=== PATIENT | male | born 1995 | race Caucasian/White ===

== ENCOUNTER 2018-04-18 08:09 | Emergency (ER) | payer SELFPAY ==
[~2018-04-18] VITALS: Ht 188 cm; Wt 102.1 kg
[2018-04-18 08:13] VITALS: BP 151/75
--- NOTE | 2018-04-18 08:20 | NUR ---
PT AMBULATES TO BED 11
--- NOTE | 2018-04-18 08:21 | NUR ---
DR SCHROEDER EVALUATING AT BEDSIDE
[2018-04-18] MEDS ORDERED: ALBUTEROL SULFATE/IPRATROPIU 3 ML SOL IH ONE (08:25)
--- NOTE | 2018-04-18 08:29 | NUR ---
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 CARLIE WHEEZES AUSCULATATED, RESP EVEN AND UNLABORED, IN NAD. ON RA @97%.PT SPEKAING FULL CLEAR SENTENCES. DENIES CP. DENIES FEVERS, TAKING MUCINEX, LAST AT 0500 WITH NO REAL RELIEF. RT CALLED FOR TREATMENT.
--- NOTE | 2018-04-18 08:34 | NUR ---
ADMITTING DX: SOB HX: DENIES ASTHMA AWAKE AND ALERT HFW POSITION EDUCATION PROVIDED TO PATIENT WITH ACKNOWLEDGEMENT ON HHN THERAPY AND RESPIRATORY DRUG HHN THERAPY GIVEN ORDERED ENCOURAGED FOR INTERMITTENT DEEP BREATH AND COUGH TOLERATED HHN THERAPY WELL WITHOUT ADVERSE REACTIONS NOTED
--- NOTE | 2018-04-18 08:57 | NUR ---
PT REPORTS FEELING BETTER AFTER BREATHING TX. DECREASED EXP WHEEZES AUSCULTATED.
[2018-04-18 09:03] VITALS: BP 129/69
--- NOTE | 2018-04-18 09:04 | NUR ---
Patient discharged with v/s stable. Written and verbal after care instructions given and explained. Patient alert, oriented and verbalized understanding of instructions. Ambulatory with steady gait. All questions addressed prior to discharge. ID band removed. Patient advised to follow up with PMD. Rx of PREDNISONE, ALBUTEROL given. Patient educated on indication of medication including possible reaction and side effects. Opportunity to ask questions provided and answered.
== END 2018-04-18 09:04 | disposition home or self-care (01) ==
LOC: MED 08:09
DX: J45.909 Unspecified asthma, uncomplicated (principal); R03.0 Elevated blood-pressure reading, without diagnosis of hypertension
CPT/HCPCS: 94640; 99283; J7620

== ENCOUNTER 2024-01-16 07:41 | Emergency (ER) | payer SELFPAY ==
[~2024-01-16] VITALS: Ht 188 cm; Wt 104.3 kg
[2024-01-16 07:46] VITALS: BP 132/99; PULSE 121; RESP 18; TEMP 98.1; O2SAT 97
[2024-01-16] MEDS ORDERED: KETOROLAC 60 MG/2 ML VIAL IM ONE (08:20)
[2024-01-16] MEDS: LIDOCAINE MPF 1% 10 MG/ML VIAL INJ ONE (08:21)
[2024-01-16] MEDS: KETOROLAC 30 MG/ML VIAL IM ONE (08:23)
[2024-01-16] MEDS ORDERED: SULF-59 PO (08:53)
[2024-01-16] MEDS ORDERED: ACET-10509 PO (08:53)
[2024-01-16] MEDS ORDERED: IBUP-2213 PO (08:53)
[2024-01-16 09:05] VITALS: BP 127/72; PULSE 90; O2SAT 98
== END 2024-01-16 09:05 | disposition home or self-care (01) ==
LOC: MED 07:41
DX: L02.31 Cutaneous abscess of buttock (principal); L03.317 Cellulitis of buttock; Z79.899 Other long term (current) drug therapy
CPT/HCPCS: 10060; 82948; 96372; 99284; J1885; J2001

== ENCOUNTER 2024-01-18 20:05 | Emergency (ER) | payer SELFPAY ==
[~2024-01-18] VITALS: Ht 188 cm; Wt 105.9 kg
[~2024-01-18 20:05] MED LIST: ACET-10509 PO; IBUP-2213 PO; SULF-59 PO
[2024-01-18 20:11] VITALS: BP 112/76; PULSE 70; RESP 16; TEMP 97.7; O2SAT 95
== END 2024-01-18 21:45 | disposition left against medical advice (07) ==
LOC: MED 20:05
DX: Z48.01 Encounter for change or removal of surgical wound dressing (principal); Z53.21 Procedure and treatment not carried out due to patient leaving prior to being seen by health care provider
CPT/HCPCS: 99281

== ENCOUNTER 2024-01-19 10:33 | Emergency (ER) | payer SELFPAY ==
[~2024-01-19] VITALS: Ht 188 cm; Wt 100.7 kg
[2024-01-19 10:40] VITALS: BP 119/87; PULSE 63; RESP 18; TEMP 98.2; O2SAT 96
== END 2024-01-19 12:26 | disposition home or self-care (01) ==
LOC: MED 10:33
DX: Z48.01 Encounter for change or removal of surgical wound dressing (principal); Z79.899 Other long term (current) drug therapy
CPT/HCPCS: 99281